=== PATIENT | female | born 1970 | race African-American/Black ===

== ENCOUNTER 2016-11-11 01:38 | Emergency (ER) | payer OTHER ==
[2016-11-11 03:20] LABS: Bilirubin Negative (Negative); Blood, Urine Trace (Negative); Glucose, Urine (Dipstick) Negative (Negative); Ketone, Urine Negative (Negative); Nitrite Negative (Negative); Protein, Urine (Dipstick) Negative (Neg-Trace); Urobilinogen 0.2 mg/dL (0.2-1.0)
[2016-11-11 03:21] LABS: Bacteria/HPF 1+ HPF (None Seen); Squamous Epithelial 0-3 HPF (0-3)
[2016-11-11] MEDS ORDERED: Nitrofurantoin Monohyd/M-Cryst 100 MG CAP ONE (03:54)
== END 2016-11-11 04:04 | disposition home or self-care (01) ==
LOC: BURERS 01:38
DX: N30.00 Acute cystitis without hematuria (principal); B37.3 Candidiasis of vulva and vagina; I10 Essential (primary) hypertension; F41.9 Anxiety disorder, unspecified
CPT/HCPCS: 51701; 81003; 81015; 87086; 87480; 87491; 87510; 87591; 87660; A4353

== ENCOUNTER 2017-02-24 22:51 | Emergency (ER) | payer OTHER ==
[2017-02-24 23:43] LABS: #Basophils 0.1 thou/uL (0.0-0.2); #Eosinphils 0.4 thou/uL (0.0-0.7); #Lymphocytes 3.2 thou/uL (1.20-3.40); #Monocytes 0.5 thou/uL (0.11-0.59); %Basophils 1.1 % (0.0-1.0); %Eosinophils 4.7 % (0.0-10.0); %Lymphocytes 38.8 % (21.0-51.0); %Monocytes 6.3 % (0.0-10.0); %Neutrophils 49.2 % (42.0-75.0); Hemoglobin 13.8 g/dL (12.0-16.0); Mean Corpuscular HGB CONC 32.3 g/dL (32.0-36.0); Mean Corpuscular Hemoglobin 27.8 pg (27.0-31.0); Mean Corpuscular Volume 86.2 fl (81.0-99.0); Mean Platelet Volume 7.7 fL (7.4-10.4); Platelet Count 233 thou/uL (130-400); RBC Distribution Width 12.1 % (11.5-14.5); Red Blood Cell (RBC) Count 4.96 mill/uL (4.20-5.40); White Blood Cell (WBC) Count 8.1 thou/uL (4.8-10.8)
[2017-02-24 23:43] LABS: Amphetamine Not Detected (NotDetected); Barbiturates Screen Not Detected (NotDetected); Benzodiazepine Screen Not Detected (NotDetected); Cocaine Metabolite Screen Not Detected (NotDetected); Methadone Not Detected (NotDetected); Methamphetamine Not Detected (NotDetected); Opiate Screen Not Detected (NotDetected); Oxycodone Screen Not Detected (NotDetected); Phencyclidine (PCP) Not Detected (NotDetected); THC/Cannabinoid Screen Not Detected (NotDetected); Tricyclic Screen Not Detected (NotDetected)
[2017-02-24 23:50] LABS: Medtox Control Line Valid? VALID (VALID)
[2017-02-24 23:57] LABS: ALT (SGPT) 13 U/L (8-55); AST (SGOT) 15 U/L (5-34); Acetaminophen Less than 6.0 mcg/mL (10.0-30.0); Albumin 3.8 g/dL (3.5-5.0); Alcohol 139 mg/dL (Less than 10); Alkaline Phosphatase 68 U/L (40-150); Anion Gap 17 mmol/L (10-20); BUN (Urea Nitrogen) 12 mg/dL (7.0-18.7); Bilirubin, Total 0.2 mg/dL (0.2-1.2); Calc. Creatinine Clearance 0 mL/min (70-130); Calcium 9.1 mg/dL (7.8-10.44); Carbon Dioxide 23 mmol/L (22-29); Chloride 106 mmol/L (98-107); Estimated GFR-MDRD 85; Globulin 3.8 g/dL (2.4-3.5); Glucose 79 mg/dL (70-105); Protein, Total 7.6 g/dL (6.0-8.3); Salicylate Less than 8.0 mg/dL (15.0-30.0); Sodium 142 mmol/L (136-145)
== END 2017-02-25 01:39 | disposition home or self-care (01) ==
LOC: BURERS 22:51
DX: F32.9 Major depressive disorder, single episode, unspecified (principal); I10 Essential (primary) hypertension; Z79.899 Other long term (current) drug therapy
CPT/HCPCS: 36415; 80053; 80306; 80307; 84443; 85025; 99285

== ENCOUNTER 2017-07-24 23:31 | Emergency (ER) | payer OTHER ==
[2017-07-24] MEDS ORDERED: Ibuprofen 800 MG TAB ONE (23:39)
--- NOTE | 2017-07-25 07:41 | RAD ---
4 VIEWS RIGHT KNEE: Date: 07/24/17 HISTORY: Right knee gave out and patient fell to her knees. Complains of right knee pain and right hip pain. FINDINGS: There is tricompartment osteophytosis, greatest involving the medial joint compartment and patellofem oral joint. There is joint space narrowing involving the patellofemoral joint with large osteophytes present involving the patellofemoral joint. No acute fracture or dislocation is seen. There is eviden ce of a small joint effusion. 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 There is an osseous fragment superior to the patella, but this is well corticated and may be attributable to remote injury of an osteophyt e. This does not represent an acute injury. POS: [facility]
--- NOTE | 2017-07-25 08:09 | RAD ---
2 VIEWS RIGHT HIP: Date: 07/24/17 HISTORY: Patient was getting out of car and right knee gave out and patient fell to her knees. Patient complai ns of right knee pain and right hip pain. FINDINGS: There is mild right hip joint osteoarthritis. There is no fracture or dislocation visualized. Multipl e phleboliths overlie the pelvis. The superior and inferior pubic rami are excluded from view on the lateral projection. IMPRESSION: No acute osseous abnormality visualized. POS: [facility]
== END 2017-07-25 00:06 | disposition home or self-care (01) ==
LOC: BURERS 23:31
DX: S80.01XA Contusion of right knee, initial encounter (principal); M16.11 Unilateral primary osteoarthritis, right hip; M17.11 Unilateral primary osteoarthritis, right knee; I10 Essential (primary) hypertension; F41.9 Anxiety disorder, unspecified; F32.9 Major depressive disorder, single episode, unspecified; W18.30XA Fall on same level, unspecified, initial encounter

== ENCOUNTER 2018-02-12 09:25 | Outpatient (CLI) | payer OTHER ==
--- NOTE | 2018-02-12 17:32 | RAD ---
RIGHT KNEE FOUR VIEWS: 02/12/18 Comparison is made with the prior study of 07/24/17. The joint space overall seems a bit narrower tod ay than it was before. Large osteophytes of osteoarthritis are present as previously. There is a bony density superior to the patella that could be an avulsion from a prior injury and now serves more as a loose body in the joint. Its appearance really has not changed since 2017, however. There is no brady int fluid. No acute fracture was seen. IMPRESSION: Overall, the findings suggest advancing arthritic changes. POS: [facility]
--- NOTE | 2018-02-12 17:33 | RAD ---
LEFT KNEE FOUR VIEWS: 02/12/18 Comparison is made with the films done of the right side. Mild joint space narrowing and large osteop hytes are present. The patellofemoral joint is particularly involved. There are no findings of fractu re or joint fluid. IMPRESSION: Moderate arthritic change. POS: [facility]
--- NOTE | 2018-02-12 17:35 | RAD ---
LEFT HIP TWO VIEWS: 02/12/18 No fracture was seen. The joint space is normal in width but there is the beginnings of bony spurring around the joint. The adjacent pubic ring appears intact. The articular surfaces are smooth. IMPRESSION: Mild arthritic changes mainly consisting of bony spurring. POS: [facility]
== END 2018-02-12 09:26 | disposition home or self-care (01) ==
LOC: BURRAD 09:25
PROVIDERS: ATTEND Family Medicine
DX: M25.561 Pain in right knee (principal); M25.562 Pain in left knee; M25.552 Pain in left hip; M16.12 Unilateral primary osteoarthritis, left hip; M17.12 Unilateral primary osteoarthritis, left knee

== ENCOUNTER 2018-05-19 06:31 | Emergency (ER) | payer OTHER | END 2018-05-19 06:55 | disposition home or self-care (01) | LOC: BURERS 06:31 | DX: M75.91 Shoulder lesion, unspecified, right shoulder (principal); I10 Essential (primary) hypertension; F41.9 Anxiety disorder, unspecified; F32.9 Major depressive disorder, single episode, unspecified; Z79.899 Other long term (current) drug therapy | CPT/HCPCS: 99283 ==

== ENCOUNTER 2018-07-22 07:06 | Emergency (ER) | payer OTHER | END 2018-07-22 07:47 | disposition home or self-care (01) | LOC: BURERS 07:06 | DX: R59.0 Localized enlarged lymph nodes (principal); F41.9 Anxiety disorder, unspecified; F32.9 Major depressive disorder, single episode, unspecified; Z79.899 Other long term (current) drug therapy | CPT/HCPCS: 99281 ==

== ENCOUNTER 2018-10-06 10:37 | Outpatient (CLI) | payer OTHER ==
[2018-10-06 17:27] LABS: #Basophils 0.1 thou/uL (0.0-0.2); #Eosinphils 0.3 thou/uL (0.0-0.7); #Lymphocytes 2.3 thou/uL (1.20-3.40); #Monocytes 0.5 thou/uL (0.11-0.59); #Neutrophils 3.2 thou/uL (1.40-6.50); %Basophils 1.3 % (0.0-1.0); %Eosinophils 4.7 % (0.0-10.0); %Lymphocytes 36.4 % (21.0-51.0); %Monocytes 7.3 % (0.0-10.0); %Neutrophils 50.4 % (42.0-75.0); Hemoglobin 12.2 g/dL (12.0-16.0); Mean Corpuscular HGB CONC 31.8 g/dL (32.0-36.0); Mean Corpuscular Hemoglobin 28.1 pg (27.0-31.0); Mean Corpuscular Volume 88.2 fL (78.0-98.0); Mean Platelet Volume 9.2 fL (7.4-10.4); Platelet Count 231 thou/uL (130-400); RBC Distribution Width 11.7 % (11.5-14.5); Red Blood Cell (RBC) Count 4.34 mill/uL (4.20-5.40); White Blood Cell (WBC) Count 6.4 thou/uL (4.8-10.8)
[2018-10-06 17:41] LABS: ALT (SGPT) 7 U/L (8-55); AST (SGOT) 11 U/L (5-34); Albumin 3.7 g/dL (3.5-5.0); Alkaline Phosphatase 58 U/L (40-150); Anion Gap 9 mmol/L (10-20); BUN (Urea Nitrogen) 12 mg/dL (7.0-18.7); Bilirubin, Total 0.5 mg/dL (0.2-1.2); Calc. Creatinine Clearance 0 mL/min (70-130); Carbon Dioxide 25 mmol/L (22-29); Cardiac Risk 2.3 (Less than 4.5); Chloride 107 mmol/L (98-107); Cholesterol 124 mg/dl (< 200 Desired); Estimated GFR-MDRD Greater than 90; Globulin 2.9 g/dL (2.4-3.5); Glucose 83 mg/dL (70-105); HDL Cholesterol 54 mg/dL (>60 Neg Risk); Iron 107 ug/dL (50-170); LDL Cholesterol, Calculated 54 mg/dL; Potassium 3.9 mmol/L (3.5-5.1); Protein, Total 6.6 g/dL (6.0-8.3); Sodium 137 mmol/L (136-145); Triglycerides 78 mg/dL (Less than 150)
[2018-10-06 17:56] LABS: Hemoglobin A1c 5.1 % (4.0-6.0)
[2018-10-06 18:00] LABS: Ferritin 115.29 ng/mL (10-291); Free T4 (Free Thyroxine) 0.88 ng/dL (0.70-1.48); Thyroid Stimulating Hormone 1.2409 uIU/mL (0.35-4.94)
[2018-10-06 18:01] LABS: Vitamin D, 25 Hydroxy 10.7 ng/ml (> 30.0)
[2018-10-06 18:05] LABS: Folate (Folic Acid) 5.3 ng/mL (7.0-31.4)
--- NOTE | 2018-10-06 21:30 | RAD ---
ABDOMEN: 10/06/2018 FINDINGS: Supine view of the abdomen show a normal bowel gas pattern. There is no sign of obstruction. Pelvic calcifications are probably all phleboliths. No calcifications of concern are seen elsewhere. Some minor bony spurring is seen in the hips. IMPRESSION: No significant finding. POS: [facility]
== END 2018-10-06 10:38 | disposition home or self-care (01) ==
LOC: BURRAD 10:37
PROVIDERS: ATTEND Family Medicine
DX: K21.9 Gastro-esophageal reflux disease without esophagitis (principal); Z13.6 Encounter for screening for cardiovascular disorders; I10 Essential (primary) hypertension; E66.9 Obesity, unspecified; R53.83 Other fatigue; E55.9 Vitamin D deficiency, unspecified; Z79.899 Other long term (current) drug therapy
CPT/HCPCS: 36415; 74018; 80053; 80061; 82306; 82607; 82728; 82746; 83036; 83540; 84425; 84439; 84443; 84481; 85025; 87338

== ENCOUNTER 2019-01-02 09:10 | Outpatient (CLI) | payer OTHER | END 2019-01-02 09:11 | disposition home or self-care (01) | LOC: BUREKG 09:10 | PROVIDERS: ATTEND Family Medicine | DX: Z01.818 Encounter for other preprocedural examination (principal) ==

== ENCOUNTER 2019-04-14 08:57 | Outpatient (CLI) | payer OTHER ==
--- NOTE | 2019-04-15 08:27 | RAD ---
EXAM: 3 views of the right shoulder HISTORY: Shoulder pain for 2 weeks COMPARISON: None FINDINGS: There is no evidence of acute fracture or dislocation. No degenerative changes are present. No soft tissue swelling is seen. The visualized thorax is unremarkable. IMPRESSION: No evidence of acute osseous abnormality.
== END 2019-04-14 08:58 | disposition home or self-care (01) ==
LOC: BURRAD 08:57
PROVIDERS: ATTEND Family Medicine
DX: M25.511 Pain in right shoulder (principal)

== ENCOUNTER 2020-09-07 18:22 | Emergency (ER) | payer OTHER ==
[2020-09-07] MEDS ORDERED: Ketorolac Tromethamine 30 MG/ML VIAL ONE (19:06)
[2020-09-07 19:11] LABS: #Basophils 0.1 thou/uL (0.0-0.2); #Eosinphils 0.8 thou/uL (0.0-0.7); #Lymphocytes 2.4 thou/uL (1.20-3.40); #Monocytes 0.5 thou/uL (0.11-0.59); #Neutrophils 3.7 thou/uL (1.40-6.50); %Basophils 1.5 % (0.0-1.0); %Eosinophils 10.5 % (0.0-10.0); %Lymphocytes 31.4 % (21.0-51.0); %Monocytes 6.9 % (0.0-10.0); %Neutrophils 49.7 % (42.0-75.0); Hemoglobin 12.3 g/dL (12.0-16.0); Mean Corpuscular HGB CONC 31.7 g/dL (32.0-36.0); Mean Corpuscular Hemoglobin 27.3 pg (27.0-31.0); Mean Corpuscular Volume 86.3 fL (78.0-98.0); Mean Platelet Volume 7.9 fL (7.4-10.4); Platelet Count 217 thou/uL (130-400); RBC Distribution Width 12.1 % (11.5-14.5); White Blood Cell (WBC) Count 7.5 thou/uL (4.8-10.8)
[2020-09-07 19:24] LABS: ALT (SGPT) 15 U/L (8-55); AST (SGOT) 17 U/L (5-34); Albumin 3.9 g/dL (3.5-5.0); Alkaline Phosphatase 78 U/L (40-110); Anion Gap 14 mmol/L (10-20); BUN (Urea Nitrogen) 21 mg/dL (9.8-20.1); Bilirubin, Total Less than 0.2 mg/dL (0.2-1.2); Calc. Creatinine Clearance 0 mL/min (70-130); Carbon Dioxide 28 mmol/L (22-29); Chloride 102 mmol/L (98-107); Globulin 3.3 g/dL (2.4-3.5); Glucose 83 mg/dL (70-105); Potassium 3.4 mmol/L (3.5-5.1); Protein, Total 7.2 g/dL (6.0-8.3); Sodium 141 mmol/L (136-145)
== END 2020-09-07 19:50 | disposition home or self-care (01) ==
LOC: BURERS 18:22
DX: E87.6 Hypokalemia (principal); R60.0 Localized edema; R21 Rash and other nonspecific skin eruption; I11.0 Hypertensive heart disease with heart failure; I50.9 Heart failure, unspecified; J45.909 Unspecified asthma, uncomplicated; Z79.51 Long term (current) use of inhaled steroids; Z79.899 Other long term (current) drug therapy
CPT/HCPCS: 80053; 83880; 85025; 96374; J1885

== ENCOUNTER 2021-08-16 06:10 | Emergency (ER) | payer OTHER ==
[2021-08-16 06:50] LABS: ALT (SGPT) 22 U/L (8-55); AST (SGOT) 22 U/L (5-34); Albumin 3.4 g/dL (3.5-5.0); Alkaline Phosphatase 74 U/L (40-110); Anion Gap 12 mmol/L (10-20); BUN (Urea Nitrogen) 13 mg/dL (9.8-20.1); Bilirubin, Total 0.2 mg/dL (0.2-1.2); Calc. Creatinine Clearance 0 mL/min (70-130); Calcium 9.2 mg/dL (7.8-10.44); Carbon Dioxide 23 mmol/L (22-29); Chloride 109 mmol/L (98-107); Globulin 3.4 g/dL (2.4-3.5); Glucose 90 mg/dL (70-105); Potassium 3.5 mmol/L (3.5-5.1); Protein, Total 6.8 g/dL (6.0-8.3); Sodium 140 mmol/L (136-145)
[2021-08-16] MEDS ORDERED: Fentanyl 100 MCG/2 ML VIAL ONE (06:54)
[2021-08-16] MEDS ORDERED: Aspirin Chewable 81 MG TAB ONE (06:55)
[2021-08-16 06:58] LABS: #Basophils 0.1 thou/uL (0.0-0.2); #Eosinphils 0.5 thou/uL (0.0-0.7); #Lymphocytes 1.5 thou/uL (1.20-3.40); #Monocytes 0.5 thou/uL (0.11-0.59); #Neutrophils 2.5 thou/uL (1.40-6.50); %Basophils 1.5 % (0.0-1.0); %Eosinophils 10.2 % (0.0-10.0); %Lymphocytes 28.7 % (21.0-51.0); %Monocytes 10.1 % (0.0-10.0); %Neutrophils 49.5 % (42.0-75.0); Hemoglobin 12.2 g/dL (12.0-16.0); Mean Corpuscular HGB CONC 33.8 g/dL (32.0-36.0); Mean Platelet Volume 7.8 fL (7.4-10.4); Platelet Count 206 thou/uL (130-400); RBC Distribution Width 11.6 % (11.5-14.5); Red Blood Cell (RBC) Count 4.37 mill/uL (4.20-5.40); White Blood Cell (WBC) Count 5.1 thou/uL (4.8-10.8)
[2021-08-16] MEDS ORDERED: methylPREDNISolone Sod Succ/PF 125 MG/2 ML VIAL ONE (07:19)
[2021-08-16] MEDS ORDERED: cefTRIAXone\\ROCEPHIN 2 GM VIAL ONE (07:19)
== END 2021-08-16 08:17 | disposition home or self-care (01) ==
LOC: BURERS 06:10
DX: M94.0 Chondrocostal junction syndrome [Tietze] (principal); J06.9 Acute upper respiratory infection, unspecified; I11.0 Hypertensive heart disease with heart failure; I50.9 Heart failure, unspecified; J45.909 Unspecified asthma, uncomplicated; Z79.899 Other long term (current) drug therapy
CPT/HCPCS: 71045; 80053; 83880; 84484; 85025; 93005; 94760; 96374; 96375; J0696; J2930; J3010

== ENCOUNTER 2021-09-29 01:00 | Emergency (ER) | payer OTHER ==
[2021-09-29] MEDS ORDERED: predniSONE 20 MG TAB ONE (01:51)
== END 2021-09-29 02:05 | disposition home or self-care (01) ==
LOC: BURERS 01:00
DX: J44.1 Chronic obstructive pulmonary disease with (acute) exacerbation (principal); I11.0 Hypertensive heart disease with heart failure; I50.9 Heart failure, unspecified; Z79.899 Other long term (current) drug therapy
CPT/HCPCS: 99284; J7512; J7620

== ENCOUNTER 2021-12-18 13:05 | Emergency (ER) | payer OTHER ==
[2021-12-18] MEDS ORDERED: methylPREDNISolone Sod Succ/PF 125 MG/2 ML VIAL ONE (13:45)
[2021-12-18 13:55] LABS: #Basophils 0.1 thou/uL (0.0-0.2); #Eosinphils 0.5 thou/uL (0.0-0.7); #Monocytes 0.5 thou/uL (0.11-0.59); #Neutrophils 3.1 thou/uL (1.40-6.50); %Basophils 1.6 % (0.0-1.0); %Eosinophils 8.8 % (0.0-10.0); %Neutrophils 49.6 % (42.0-75.0); Hemoglobin 12.9 g/dL (12.0-16.0); Mean Corpuscular HGB CONC 31.9 g/dL (32.0-36.0); Mean Corpuscular Hemoglobin 27.8 pg (27.0-31.0); Mean Platelet Volume 8.1 fL (7.4-10.4); Platelet Count 163 thou/uL (130-400); RBC Distribution Width 12.6 % (11.5-14.5); Red Blood Cell (RBC) Count 4.64 mill/uL (4.20-5.40); White Blood Cell (WBC) Count 6.2 thou/uL (4.8-10.8)
[2021-12-18 13:59] LABS: ALT (SGPT) 19 U/L (8-55); AST (SGOT) 13 U/L (5-34); Albumin 3.9 g/dL (3.5-5.0); Alkaline Phosphatase 66 U/L (40-110); Anion Gap 17 mmol/L (10-20); BUN (Urea Nitrogen) 20 mg/dL (9.8-20.1); Bilirubin, Total 0.5 mg/dL (0.2-1.2); Calc. Creatinine Clearance 0 mL/min (70-130); Calcium 9.1 mg/dL (7.8-10.44); Carbon Dioxide 23 mmol/L (22-29); Chloride 110 mmol/L (98-107); Globulin 3.3 g/dL (2.4-3.5); Glucose 76 mg/dL (70-105); Potassium 3.9 mmol/L (3.5-5.1); Protein, Total 7.2 g/dL (6.0-8.3); Sodium 146 mmol/L (136-145)
== END 2021-12-18 16:00 | disposition home or self-care (01) ==
LOC: BURERS 13:05
DX: J44.1 Chronic obstructive pulmonary disease with (acute) exacerbation (principal); I11.0 Hypertensive heart disease with heart failure; I50.9 Heart failure, unspecified
CPT/HCPCS: 36415; 71045; 80053; 83880; 84484; 85025; 85379; 93005; 96374; J2930; J7620

== ENCOUNTER 2022-01-04 04:36 | Inpatient (IN) | payer OTHER ==
[2022-01-04] MEDS ORDERED: methylPREDNISolone Sod Succ/PF 125 MG/2 ML VIAL ONE (05:18)
[2022-01-04] MEDS ORDERED: Magnesium 2 GM/50 ML BAG (IN WATER) ONE (05:18)
[2022-01-04] MEDS ORDERED: Albuterol Sulfate 2.5 mg/0.5 ml Neb ONE ×2 (05:18→05:19)
[2022-01-04 05:35] LABS: #Basophils 0.2 thou/uL (0.0-0.2); #Eosinphils 0.5 thou/uL (0.0-0.7); #Lymphocytes 2.5 thou/uL (1.20-3.40); #Monocytes 0.6 thou/uL (0.11-0.59); #Neutrophils 3.4 thou/uL (1.40-6.50); %Basophils 2.6 % (0.0-1.0); %Eosinophils 6.8 % (0.0-10.0); %Lymphocytes 35.1 % (21.0-51.0); %Monocytes 8.2 % (0.0-10.0); %Neutrophils 47.4 % (42.0-75.0); ALT (SGPT) 18 U/L (8-55); AST (SGOT) 18 U/L (5-34); Albumin 3.5 g/dL (3.5-5.0); Alkaline Phosphatase 62 U/L (40-110); Anion Gap 15 mmol/L (10-20); BUN (Urea Nitrogen) 17 mg/dL (9.8-20.1); Bilirubin, Total 0.2 mg/dL (0.2-1.2); Calc. Creatinine Clearance 0 mL/min (70-130); Calcium 8.6 mg/dL (7.8-10.44); Carbon Dioxide 22 mmol/L (22-29); Chloride 109 mmol/L (98-107); Globulin 3.3 g/dL (2.4-3.5); Glucose 89 mg/dL (70-105); Hemoglobin 12.2 g/dL (12.0-16.0); Mean Corpuscular HGB CONC 32.7 g/dL (32.0-36.0); Mean Corpuscular Volume 85.7 fL (78.0-98.0); Mean Platelet Volume 7.6 fL (7.4-10.4); Platelet Count 227 thou/uL (130-400); Potassium 4.1 mmol/L (3.5-5.1); Protein, Total 6.8 g/dL (6.0-8.3); RBC Distribution Width 12.3 % (11.5-14.5); Red Blood Cell (RBC) Count 4.35 mill/uL (4.20-5.40); Sodium 142 mmol/L (136-145); White Blood Cell (WBC) Count 7.1 thou/uL (4.8-10.8)
[2022-01-04] MEDS ORDERED: Sodium Chloride 0.9% 100 ML ONE (06:50)
[2022-01-04] MEDS ORDERED: cefTRIAXone\\ROCEPHIN 2 GM VIAL ONE (06:50)
[2022-01-04] MEDS ORDERED: Fentanyl 100 MCG/2 ML VIAL ONE (07:11)
[2022-01-04 07:48] LABS: SARS-CoV-2 NAA Rapid Test Not Detected (NotDetected)
[2022-01-04] MEDS ORDERED: Azithromycin 250 MG TAB ONE (08:08)
[2022-01-04 10:41] VITALS: BMI 44.6
[2022-01-04] MEDS ORDERED: Meloxicam 7.5 MG TAB PO PRN (11:58)
[2022-01-04] MEDS ORDERED: Ondansetron PF 4 MG/2 ML Vial IVP PRN (12:12)
[2022-01-04] MEDS ORDERED: Ondansetron ODT 4 MG TAB PO PRN (12:13)
[2022-01-04] MEDS ORDERED: Dextrose 5 %-0.45 % NaCl 1,000 ML IV SCH (15:15)
[2022-01-04] MEDS: methylPREDNISolone Sod Succ/PF 125 MG/2 ML VIAL IVP SCH ×2 (15:32→21:20)
[2022-01-04] MEDS: Famotidine 20 MG TAB PO SCH (21:19)
[2022-01-04] MEDS: Carvedilol 6.25 MG TAB PO SCH (21:19)
[2022-01-04] MEDS: Enoxaparin Sodium 40 MG/0.4 ML SYRINGE SC SCH (21:19)
[2022-01-05] MEDS ORDERED: Albuterol 200 PUFF (6.7GM INHALER) INH PRN (04:30)
[2022-01-05] MEDS: cefTRIAXone\\ROCEPHIN 1 GM in Sodium Chloride 0.9% 100 ML IVPB SCH (06:11)
[2022-01-05] MEDS: Acetaminophen 325 MG TAB PO PRN (06:51)
[2022-01-05] MEDS ORDERED: Non-Formulary Item 1 EACH (Sertraline Hcl [Sertraline Hcl] 50 MG Tablet) PO SCH (09:00)
[2022-01-05] MEDS ORDERED: Furosemide 20 MG TAB PO SCH (09:00)
[2022-01-05] MEDS ORDERED: PHENTERMINE HCL 30 MG PO SCH (09:00)
[2022-01-05] MEDS ORDERED: Non-Formulary Item 1 EACH (Potassium Chloride [Potassium Chloride] 20 MEQ Tablet.Er) PO SCH (09:00)
[2022-01-05] MEDS ORDERED: CETIRIZINE HCL 10 MG PO SCH (09:00)
[2022-01-05] MEDS: Carvedilol 6.25 MG TAB PO SCH ×2 (09:13→21:09)
[2022-01-05] MEDS: Furosemide 40 MG TAB PO SCH (09:13)
[2022-01-05] MEDS: Azithromycin 250 MG TAB PO SCH (09:13)
[2022-01-05] MEDS: Potassium Chloride 20 MEQ TAB PO SCH (09:14)
[2022-01-05] MEDS: Famotidine 20 MG TAB PO SCH ×2 (09:14→21:09)
[2022-01-05] MEDS: Loratadine 10 MG TAB PO SCH (09:14)
[2022-01-05] MEDS: methylPREDNISolone Sod Succ/PF 125 MG/2 ML VIAL IVP SCH ×3 (09:15→21:09)
[2022-01-05] MEDS: PHENTERMINE HCL 30 MG PO SCH (09:19)
[2022-01-05] MEDS: Benzonatate 100 MG CAP PO SCH ×2 (16:24→21:09)
[2022-01-05] MEDS: Enoxaparin Sodium 40 MG/0.4 ML SYRINGE SC SCH (21:09)
[2022-01-06] MEDS: cefTRIAXone\\ROCEPHIN 1 GM in Sodium Chloride 0.9% 100 ML IVPB SCH (05:02)
[2022-01-06] MEDS: Acetaminophen 325 MG TAB PO PRN (05:07)
[2022-01-06 05:47] VITALS: BP 138/86; TEMP 97.9
[2022-01-06] MEDS: Furosemide 40 MG TAB PO SCH (09:13)
[2022-01-06] MEDS: Loratadine 10 MG TAB PO SCH (09:14)
[2022-01-06] MEDS: Carvedilol 6.25 MG TAB PO SCH (09:14)
[2022-01-06] MEDS: methylPREDNISolone Sod Succ/PF 125 MG/2 ML VIAL IVP SCH (09:14)
[2022-01-06] MEDS: Famotidine 20 MG TAB PO SCH (09:14)
[2022-01-06] MEDS: Azithromycin 250 MG TAB PO SCH (09:14)
[2022-01-06] MEDS: Potassium Chloride 20 MEQ TAB PO SCH (09:14)
[2022-01-06] MEDS: Benzonatate 100 MG CAP PO SCH (09:14)
[2022-01-06] MEDS: PHENTERMINE HCL 30 MG PO SCH (09:15)
[2022-01-06] MEDS ORDERED: predniSONE 20 MG TAB PO SCH (14:30)
[2022-01-06] MEDS ORDERED: Cefdinir 300 MG CAP PO SCH (21:00)
== END 2022-01-06 15:30 | disposition home or self-care (01) | DRG 190 ==
LOC: BURERS 04:36 → BURMED 07:13
PROVIDERS: ADMIT Family Medicine; ATTEND Family Medicine
DX: J44.1 Chronic obstructive pulmonary disease with (acute) exacerbation (principal); J18.9 Pneumonia, unspecified organism; J44.0 Chronic obstructive pulmonary disease with (acute) lower respiratory infection; I10 Essential (primary) hypertension; F32.A Depression, unspecified; F41.9 Anxiety disorder, unspecified; K21.9 Gastro-esophageal reflux disease without esophagitis; Z20.822 Contact with and (suspected) exposure to COVID-19; J44.9 Chronic obstructive pulmonary disease, unspecified; Z90.710 Acquired absence of both cervix and uterus; Z90.49 Acquired absence of other specified parts of digestive tract; Z98.51 Tubal ligation status; Z88.1 Allergy status to other antibiotic agents; Z88.2 Allergy status to sulfonamides; Z79.82 Long term (current) use of aspirin; Z79.899 Other long term (current) drug therapy
CPT/HCPCS: 36415; 71045; 80053; 83880; 84484; 85025; 87040; 93005; 94760; 96365; 96367; 96375; J0696; J1650; J2930; J3010; J3475; J3490; J7042; J7611; J7620

== ENCOUNTER 2022-01-28 10:13 | Emergency (ER) | payer OTHER ==
[2022-01-28] MEDS ORDERED: predniSONE 20 MG TAB ONE (10:35)
== END 2022-01-28 11:18 | disposition home or self-care (01) ==
LOC: BURERS 10:13
DX: J44.1 Chronic obstructive pulmonary disease with (acute) exacerbation (principal); I50.9 Heart failure, unspecified; Z79.899 Other long term (current) drug therapy
CPT/HCPCS: 71046; J7512; J7620

== ENCOUNTER 2022-02-25 10:44 | Emergency (ER) | payer OTHER ==
[2022-02-25] MEDS ORDERED: predniSONE 20 MG TAB ONE (10:56)
== END 2022-02-25 12:02 | disposition home or self-care (01) ==
LOC: BURERS 10:44
DX: J44.1 Chronic obstructive pulmonary disease with (acute) exacerbation (principal); I10 Essential (primary) hypertension; Z79.899 Other long term (current) drug therapy
CPT/HCPCS: 93005; J7512; J7620

== ENCOUNTER 2022-06-12 16:24 | Observation (INO) | payer OTHER ==
[2022-06-12] MEDS ORDERED: Ipratropium Bromide 2.5 ml Neb ONE (16:44)
[2022-06-12] MEDS ORDERED: Albuterol Sulfate 2.5 mg/3 ml Neb ONE (16:44)
[2022-06-12] MEDS ORDERED: methylPREDNISolone Sod Succ/PF 125 MG/2 ML VIAL ONE (16:49)
[2022-06-12 16:52] LABS: #Basophils 0.1 thou/uL (0.0-0.2); #Eosinphils 0.6 thou/uL (0.0-0.7); #Lymphocytes 2.1 thou/uL (1.20-3.40); #Monocytes 0.4 thou/uL (0.11-0.59); #Neutrophils 3.4 thou/uL (1.40-6.50); %Basophils 1.2 % (0.0-1.0); %Eosinophils 8.8 % (0.0-10.0); %Lymphocytes 31.4 % (21.0-51.0); %Monocytes 6.8 % (0.0-10.0); %Neutrophils 51.8 % (42.0-75.0); Hemoglobin 12.7 g/dL (12.0-16.0); Mean Corpuscular HGB CONC 31.1 g/dL (32.0-36.0); Mean Corpuscular Hemoglobin 27.4 pg (27.0-31.0); Mean Corpuscular Volume 88.1 fL (78.0-98.0); Mean Platelet Volume 8.8 fL (7.4-10.4); Platelet Count 221 thou/uL (130-400); RBC Distribution Width 12.2 % (11.5-14.5); Red Blood Cell (RBC) Count 4.66 mill/uL (4.20-5.40); White Blood Cell (WBC) Count 6.5 thou/uL (4.8-10.8)
[2022-06-12 17:07] LABS: ALT (SGPT) 12 U/L (8-55); AST (SGOT) 17 U/L (5-34); Alkaline Phosphatase 67 U/L (40-110); Anion Gap 12 mmol/L (10-20); BUN (Urea Nitrogen) 20 mg/dL (9.8-20.1); Bilirubin, Total 0.5 mg/dL (0.2-1.2); Calc. Creatinine Clearance 0 mL/min (70-130); Calcium 9.5 mg/dL (7.8-10.44); Carbon Dioxide 25 mmol/L (22-29); Chloride 107 mmol/L (98-107); Estimated GFR 80; Globulin 3.4 g/dL (2.4-3.5); Glucose 85 mg/dL (70-105); Potassium 3.8 mmol/L (3.5-5.1); Protein, Total 7.4 g/dL (6.0-8.3); Sodium 140 mmol/L (136-145)
[2022-06-12] MEDS ORDERED: cefTRIAXone\\ROCEPHIN 1 GM VIAL ONE (18:17)
[2022-06-12] MEDS ORDERED: Sodium Chloride 0.9% 100 ML ONE (18:18)
[2022-06-12 20:41] VITALS: BMI 43.7
[2022-06-12] MEDS: Albuterol Sulfate 2.5 mg/3 ml Neb NEB PRN (22:13)
[2022-06-12] MEDS: Acetaminophen 325 MG TAB PO PRN (23:00)
[2022-06-13] MEDS: Albuterol Sulfate 2.5 mg/3 ml Neb NEB SCH ×3 (01:22→09:03)
[2022-06-13] MEDS: Albuterol Sulfate 2.5 mg/3 ml Neb NEB PRN (02:30)
[2022-06-13 07:18] LABS: SARS-CoV-2 NAA Rapid Test Not Detected (NotDetected)
[2022-06-13] MEDS ORDERED: Acetaminophen 325 MG TAB PO PRN (07:33)
[2022-06-13] MEDS ORDERED: Meloxicam 7.5 MG TAB PO PRN (07:33)
[2022-06-13] MEDS ORDERED: Albuterol 200 PUFF (6.7GM INHALER) INH PRN (07:33)
[2022-06-13] MEDS: Acetaminophen 325 MG TAB PO PRN (07:47)
[2022-06-13] MEDS ORDERED: Non-Formulary Item 1 EACH (Tiotropium [Spiriva Handihaler] 18 MCG Box) IH SCH (09:00)
[2022-06-13] MEDS ORDERED: Potassium Chloride 20 MEQ TAB PO SCH (09:00)
[2022-06-13] MEDS ORDERED: Non-Formulary Item 1 EACH (Potassium Chloride [Potassium Chloride] 20 MEQ Tablet.Er) PO SCH (09:00)
[2022-06-13] MEDS ORDERED: CETIRIZINE HCL 10 MG PO SCH (09:00)
[2022-06-13] MEDS ORDERED: Carvedilol 6.25 MG TAB PO SCH (09:00)
[2022-06-13] MEDS ORDERED: Loratadine 10 MG TAB PO SCH (09:00)
[2022-06-13] MEDS ORDERED: Non-Formulary Item 1 EACH (Sertraline Hcl [Sertraline Hcl] 50 MG Tablet) PO SCH (09:00)
[2022-06-13] MEDS ORDERED: Furosemide 40 MG TAB PO SCH (09:00)
[2022-06-13] MEDS ORDERED: PHENTERMINE HCL 30 MG PO SCH ×2 (09:00)
[2022-06-13 09:07] VITALS: BP 136/67
[2022-06-13 09:11] VITALS: TEMP 98.4
== END 2022-06-13 10:50 | disposition home or self-care (01) ==
LOC: BURERS 16:24 → BURMED 19:40
PROVIDERS: ADMIT Family Medicine; ATTEND Family Medicine
DX: J44.1 Chronic obstructive pulmonary disease with (acute) exacerbation (principal); I10 Essential (primary) hypertension; M19.90 Unspecified osteoarthritis, unspecified site; Z79.899 Other long term (current) drug therapy; Z88.1 Allergy status to other antibiotic agents; Z88.2 Allergy status to sulfonamides; Z88.6 Allergy status to analgesic agent; Z20.822 Contact with and (suspected) exposure to COVID-19
CPT/HCPCS: 36415; 71045; 71250; 80053; 83880; 84484; 85025; 93005; 94640; 96365; 96375; G0378; J0696; J2930; J3490; J7611; U0002

== ENCOUNTER 2022-07-17 01:51 | Emergency (ER) | payer OTHER ==
[2022-07-17] MEDS ORDERED: methylPREDNISolone Sod Succ/PF 125 MG/2 ML VIAL ONE (02:07)
== END 2022-07-17 02:40 | disposition home or self-care (01) ==
LOC: BURERS 01:51
DX: J44.1 Chronic obstructive pulmonary disease with (acute) exacerbation (principal); I10 Essential (primary) hypertension; Z79.899 Other long term (current) drug therapy
CPT/HCPCS: 96374; J2930; J7620

== ENCOUNTER 2022-08-17 05:17 | Inpatient (IN) | payer OTHER ==
[2022-08-17] MEDS ORDERED: Albuterol Sulfate 2.5 mg/3 ml Neb ONE ×2 (05:43→07:02)
[2022-08-17] MEDS ORDERED: Magnesium 2 GM/50 ML BAG (IN WATER) ONE (05:50)
[2022-08-17] MEDS ORDERED: methylPREDNISolone Sod Succ/PF 125 MG/2 ML VIAL ONE (05:50)
[2022-08-17] MEDS ORDERED: Sodium Chloride 0.9% 100 ML ONE (06:44)
[2022-08-17] MEDS ORDERED: cefTRIAXone\\ROCEPHIN 2 GM VIAL ONE (06:44)
[2022-08-17 06:53] LABS: SARS-CoV-2 NAA Rapid Test Not Detected (NotDetected)
[2022-08-17] MEDS ORDERED: Albuterol Sulfate 2.5 mg/0.5 ml Neb ONE (07:00)
[2022-08-17 07:33] LABS: #Basophils 0.2 thou/uL (0.0-0.2); #Eosinphils 0.9 thou/uL (0.0-0.7); #Lymphocytes 2.1 thou/uL (1.20-3.40); #Monocytes 0.5 thou/uL (0.11-0.59); #Neutrophils 3.5 thou/uL (1.40-6.50); %Basophils 2.1 % (0.0-1.0); %Lymphocytes 29.5 % (21.0-51.0); %Monocytes 7.4 % (0.0-10.0); Hemoglobin 13.3 g/dL (12.0-16.0); Mean Corpuscular HGB CONC 32.9 g/dL (32.0-36.0); Mean Platelet Volume 8.1 fL (7.4-10.4); Platelet Count 222 10x3/uL (130-400); RBC Distribution Width 12.4 % (11.5-14.5); Red Blood Cell (RBC) Count 4.74 mill/uL (4.20-5.40); White Blood Cell (WBC) Count 7.1 10x3/uL (4.8-10.8)
[2022-08-17 07:44] LABS: Albumin 3.8 g/dL (3.5-5.0); Anion Gap 13 mmol/L (10-20); BUN (Urea Nitrogen) 18 mg/dL (9.8-20.1); Bilirubin, Total 0.2 mg/dL (0.2-1.2); Calc. Creatinine Clearance 0 mL/min (70-130); Calcium 9.1 mg/dL (7.8-10.44); Carbon Dioxide 24 mmol/L (22-29); Chloride 108 mmol/L (98-107); Estimated GFR 98; Glucose 91 mg/dL (70-105); Potassium 4.4 mmol/L (3.5-5.1); Protein, Total 7.2 g/dL (6.0-8.3); Sodium 141 mmol/L (136-145)
[2022-08-17 07:45] LABS: ALT (SGPT) 22 U/L (8-55); AST (SGOT) 20 U/L (5-34); Alkaline Phosphatase 75 U/L (40-110); Globulin 3.4 g/dL (2.4-3.5)
[2022-08-17] MEDS ORDERED: Azithromycin 250 MG TAB ONE (07:50)
[2022-08-17 08:36] VITALS: BMI 43.5
[2022-08-17] MEDS ORDERED: Albuterol Sulfate 2.5 mg/3 ml Neb NEB PRN ×2 (10:10→12:14)
[2022-08-17] MEDS ORDERED: Acetaminophen 325 MG TAB PO PRN ×2 (10:15→12:02)
[2022-08-17] MEDS ORDERED: Ondansetron ODT 4 MG TAB SL PRN (10:15)
[2022-08-17] MEDS ORDERED: Ondansetron PF 4 MG/2 ML Vial IVP PRN (10:15)
[2022-08-17] MEDS: Dextrose 5 %-0.45 % NaCl 1,000 ML IV SCH ×2 (10:25→17:00)
[2022-08-17] MEDS ORDERED: Meloxicam 7.5 MG TAB PO PRN (12:02)
[2022-08-17] MEDS: methylPREDNISolone Sod Succ/PF 125 MG/2 ML VIAL IVP SCH ×2 (13:23→21:54)
[2022-08-17] MEDS ORDERED: Enoxaparin Sodium 40 MG/0.4 ML SYRINGE SC SCH (21:00)
[2022-08-17] MEDS: Carvedilol 6.25 MG TAB PO SCH (21:53)
[2022-08-18] MEDS: methylPREDNISolone Sod Succ/PF 125 MG/2 ML VIAL IVP SCH (05:55)
[2022-08-18] MEDS ORDERED: PHENTERMINE HCL 30 MG PO SCH (09:00)
[2022-08-18] MEDS ORDERED: Loratadine 10 MG TAB PO SCH (09:00)
[2022-08-18] MEDS ORDERED: Non-Formulary Item 1 EACH (Tiotropium [Spiriva Handihaler] 18 MCG Box) IH SCH (09:00)
[2022-08-18] MEDS ORDERED: Sertraline 100 MG TAB PO SCH (09:00)
[2022-08-18] MEDS ORDERED: Furosemide 40 MG TAB PO SCH (09:00)
[2022-08-18] MEDS ORDERED: Montelukast Sodium 10 mg Tablet PO SCH (09:00)
[2022-08-18] MEDS ORDERED: Potassium Chloride 20 MEQ TAB PO SCH (09:00)
[2022-08-18] MEDS: Carvedilol 6.25 MG TAB PO SCH (09:17)
[2022-08-18 11:03] VITALS: BP 136/72; TEMP 98.6
== END 2022-08-18 10:50 | disposition home or self-care (01) | DRG 191 ==
LOC: BURERS 05:17 → BURMED 07:32
PROVIDERS: ADMIT Family Medicine; ATTEND Family Medicine
DX: J44.1 Chronic obstructive pulmonary disease with (acute) exacerbation (principal); Z68.41 Body mass index [BMI] 40.0-44.9, adult; I10 Essential (primary) hypertension; F41.9 Anxiety disorder, unspecified; E66.9 Obesity, unspecified; F32.A Depression, unspecified; Z20.822 Contact with and (suspected) exposure to COVID-19; Z90.710 Acquired absence of both cervix and uterus; Z90.49 Acquired absence of other specified parts of digestive tract; Z98.890 Other specified postprocedural states; Z98.51 Tubal ligation status; Z88.2 Allergy status to sulfonamides; Z88.8 Allergy status to other drugs, medicaments and biological substances; Z88.1 Allergy status to other antibiotic agents; Z79.899 Other long term (current) drug therapy; Z79.51 Long term (current) use of inhaled steroids
CPT/HCPCS: 36415; 71045; 80053; 85025; 94640; 96365; 96367; 96375; J0696; J1650; J2930; J3475; J3490; J7042; J7611; J7620

== ENCOUNTER 2022-08-27 18:58 | Emergency (ER) | payer OTHER ==
[2022-08-27] MEDS ORDERED: Doxycycline 100 MG CAP ONE (20:01)
[2022-08-27] MEDS ORDERED: predniSONE 20 MG TAB ONE (20:01)
== END 2022-08-27 20:38 | disposition home or self-care (01) ==
LOC: BURERS 18:58
DX: J44.1 Chronic obstructive pulmonary disease with (acute) exacerbation (principal); I10 Essential (primary) hypertension; Z79.899 Other long term (current) drug therapy
CPT/HCPCS: 71045; J7512; J7620

== ENCOUNTER 2022-11-08 15:46 | Outpatient (CLI) | payer OTHER ==
[2022-11-08 16:22] LABS: CRP (Inflammatory) Less than 0.50 mg/dL (= or < 0.5)
[2022-11-11 16:38] LABS: ANA Symphony (Qualitative) Negative (Negative); ANA Symphony (Quantitative) 0.3 Ratio (< 0.7 Negative); CCP IgG Antibody 1.3 EliAU/mL (<7 Negative); EliA RAS New Method **** NEW METHOD ****; Mitochondrial Ab 1.6 U/mL (<4 Negative); Thyroid Peroxidase IgG Ab 5.1 IU/mL (<25 Normal); dsDNA IgG Antibody 0.8 IU/mL (<10 Negative)
== END 2022-11-08 15:47 | disposition home or self-care (01) ==
LOC: BURRAD 15:46
PROVIDERS: ATTEND Family Medicine
DX: M25.50 Pain in unspecified joint (principal)
CPT/HCPCS: 36415; 83516; 84550; 85652; 86038; 86140; 86160; 86200; 86225; 86376

== ENCOUNTER 2023-07-20 08:46 | Emergency (ER) | payer OTHER ==
[2023-07-20] MEDS ORDERED: Acetaminophen 500 MG TAB ONE (09:37)
[2023-07-20] MEDS ORDERED: methylPREDNISolone Sod Succ/PF 125 MG/2 ML VIAL ONE (09:38)
== END 2023-07-20 09:48 | disposition home or self-care (01) ==
LOC: BURERS 08:46
DX: B34.9 Viral infection, unspecified (principal); I10 Essential (primary) hypertension; J44.9 Chronic obstructive pulmonary disease, unspecified; Z79.899 Other long term (current) drug therapy
CPT/HCPCS: 71046; 96372; J2930

== ENCOUNTER 2023-08-21 06:55 | Emergency (ER) | payer OTHER ==
[2023-08-21] MEDS ORDERED: methylPREDNISolone Sod Succ/PF 125 MG/2 ML VIAL ONE (07:26)
== END 2023-08-21 07:33 | disposition home or self-care (01) ==
LOC: BURERS 06:55
DX: M25.562 Pain in left knee (principal); M25.561 Pain in right knee; I10 Essential (primary) hypertension; J44.9 Chronic obstructive pulmonary disease, unspecified
CPT/HCPCS: 96372; 99283; J2930

== ENCOUNTER 2024-06-13 15:44 | Emergency (ER) | payer OTHER ==
[2024-06-13] MEDS ORDERED: Ketorolac Tromethamine 30 MG (1 mL) VIAL ONE (15:54)
[2024-06-13] MEDS ORDERED: methylPREDNISolone Sod Succ/PF 125 MG/2 ML VIAL ONE (15:55)
== END 2024-06-13 16:50 | disposition home or self-care (01) ==
LOC: BURERS 15:44
DX: M25.561 Pain in right knee (principal); I10 Essential (primary) hypertension; J44.9 Chronic obstructive pulmonary disease, unspecified; W21.02XA Struck by soccer ball, initial encounter; Z55.6 Problems related to health literacy; Y93.66 Activity, soccer
CPT/HCPCS: 96372; 99283; J1885; J2919

== ENCOUNTER 2024-08-16 13:34 | Emergency (ER) | payer OTHER ==
[2024-08-16] MEDS ORDERED: Ipratropium/Albuterol 3 ML NEB ONE ×2 (13:48→14:29)
[2024-08-16] MEDS ORDERED: methylPREDNISolone Sod Succ/PF 125 MG/2 ML VIAL ONE (13:48)
[2024-08-16 13:54] LABS: #Basophils 0.1 thou/uL (0.0-0.2); #Eosinophils 0.3 thou/uL (0.0-0.7); #Lymphocytes 1.4 thou/uL (1.20-3.40); #Monocytes 0.6 thou/uL (0.11-0.59); #Neutrophils 5.5 thou/uL (1.40-6.50); %Basophils 1.5 % (0.0-1.0); %Eosinophils 3.9 % (0.0-10.0); %Lymphocytes 17.6 % (21.0-51.0); %Monocytes 6.9 % (0.0-10.0); %Neutrophils 70.1 % (42.0-75.0); Hematocrit 41.3 % (36.0-47.0); Hemoglobin 13.7 g/dL (12.0-16.0); Mean Corpuscular HGB CONC 33.2 g/dL (32.0-36.0); Mean Corpuscular Hemoglobin 27.4 pg (27.0-31.0); Mean Corpuscular Volume 82.4 fl (78.0-98.0); Platelet Count 254 10x3/uL (130-400); RBC Distribution Width 12.1 % (11.5-14.5); Red Blood Cell (RBC) Count 5.01 mill/uL (4.20-5.40); White Blood Cell (WBC) Count 7.9 10x3/uL (4.8-10.8)
[2024-08-16 14:13] LABS: Troponin I Less than 0.010 ng/mL (< 0.028)
[2024-08-16 14:22] LABS: ALT (SGPT) 20 U/L (8-55); AST (SGOT) 19 U/L (5-34); Albumin 3.6 g/dL (3.5-5.0); Alkaline Phosphatase 75 U/L (40-110); Anion Gap 15 mmol/L (10-20); BUN (Urea Nitrogen) 14 mg/dL (9.8-20.1); Bilirubin, Total 0.4 mg/dL (0.2-1.2); Calc. Creatinine Clearance 0 mL/min (70-130); Calcium 9.3 mg/dL (7.8-10.44); Carbon Dioxide 23 mmol/L (22-29); Chloride 107 mmol/L (98-107); Estimated GFR 83; Globulin 3.5 g/dL (2.4-3.5); Glucose 89 mg/dL (70-105); Potassium 4.1 mmol/L (3.5-5.1); Protein, Total 7.1 g/dL (6.0-8.3); Sodium 141 mmol/L (136-145)
[2024-08-16] MEDS ORDERED: Albuterol 2.5 MG (3 mL) NEB ONE (15:34)
[2024-08-16] MEDS ORDERED: Doxycycline 100 MG CAP ONE (15:46)
== END 2024-08-16 17:33 | disposition home or self-care (01) ==
LOC: BURERS 13:34
DX: J44.1 Chronic obstructive pulmonary disease with (acute) exacerbation (principal); I10 Essential (primary) hypertension
CPT/HCPCS: 71045; 80053; 83605; 83880; 84484; 85025; 87428; 93005; 94760; 96374; J2919; J7611; J7620

== ENCOUNTER 2025-04-20 15:52 | Emergency (ER) | payer MEDICAID, OTHER ==
[2025-04-20] MEDS ORDERED: predniSONE 20 MG TAB ONE (16:26)
== END 2025-04-20 16:55 | disposition home or self-care (01) ==
LOC: BURERS 15:52
DX: J44.1 Chronic obstructive pulmonary disease with (acute) exacerbation (principal); I10 Essential (primary) hypertension; Z79.899 Other long term (current) drug therapy
CPT/HCPCS: J7512; J7620

== ENCOUNTER 2025-07-14 14:29 | Emergency (ER) | payer MEDICAID, OTHER ==
[2025-07-14 15:04] LABS: Hematocrit 41.1 % (36.0-47.0); Hemoglobin 13.2 g/dL (12.0-16.0); Mean Corpuscular Hemoglobin 27.2 pg (27.0-31.0); Mean Corpuscular Volume 85.0 fl (78.0-98.0); Platelet Count 246 10x3/uL (130-400); Red Blood Cell (RBC) Count 4.83 mill/uL (4.20-5.40); White Blood Cell (WBC) Count 6.0 10x3/uL (4.8-10.8)
[2025-07-14 15:10] LABS: ALT (SGPT) 9 U/L (Less than 34); AST (SGOT) 17 U/L (11-34); Albumin 3.4 g/dL (3.1-4.5); Alkaline Phosphatase 72 U/L (40-110); Anion Gap 16 mmol/L (10-20); BUN (Urea Nitrogen) 12 mg/dL (9.8-20.1); Bilirubin, Total 0.4 mg/dL (0.3-1.2); Calc. Creatinine Clearance 0 mL/min (70-130); Calcium 8.8 mg/dL (7.8-10.44); Carbon Dioxide 21 mmol/L (22-29); Chloride 109 mmol/L (98-107); Globulin 3.7 g/dL (2.4-3.5); Glucose 99 mg/dL (70-105); Potassium 3.5 mmol/L (3.5-5.1); Sodium 142 mmol/L (136-145)
[2025-07-14 15:11] LABS: Troponin I Less than 0.010 ng/mL (< 0.028)
[2025-07-14 15:17] LABS: MDiff Complete? YES
== END 2025-07-14 15:37 ==
LOC: BURERS 14:29
DX: J45.901 Unspecified asthma with (acute) exacerbation (principal); I10 Essential (primary) hypertension; Z79.51 Long term (current) use of inhaled steroids; Z79.899 Other long term (current) drug therapy
CPT/HCPCS: 71045; 80053; 83605; 83880; 84484; 85025; 87428; 93005; 94760; 96374; J2919